=== PATIENT | female | born 1965 | race Caucasian/White ===

== ENCOUNTER 2022-10-15 18:53 | Emergency (ER) | payer OTHER, BC ==
[~2022-10-15] VITALS: Ht 152.4 cm; Wt 61.2 kg
[2022-10-15 19:01] VITALS: BP 128/81
--- NOTE | 2022-10-15 20:32 | NUR ---
Dr. Vale examining patient.
[2022-10-15] MEDS ORDERED: methocarbamoL 500 MG TAB PO STA (20:37)
[2022-10-15] MEDS ORDERED: ACETAMINOPHEN 325 MG TAB PO ONE (20:40)
--- NOTE | 2022-10-15 20:59 | NUR ---
Patient returned back from CT scan.
[2022-10-15] MEDS ORDERED: KETOROLAC 15 MG/ML VIAL IM ONE (22:20)
[2022-10-15] MEDS ORDERED: IBUP-2213 PO (22:31)
[2022-10-15] MEDS ORDERED: LID5T TP (22:31)
[2022-10-15] MEDS ORDERED: METH-1681 PO (22:31)
--- NOTE | 2022-10-15 22:39 | NUR ---
Patient discharged with v/s stable. Written and verbal after care instructions given and explained. Patient alert, oriented and verbalized understanding of instructions. Ambulatory with steady gait. All questions addressed prior to discharge. ID band removed. Patient advised to follow up with PMD. Rx of ROBAXIN, LIDODERM, AND MOTRIN given. Patient educated on indication of medication including possible reaction and side effects. Opportunity to ask questions provided and answered.
== END 2022-10-15 22:39 | disposition home or self-care (01) ==
LOC: MED 18:53
DX: S16.1XXA Strain of muscle, fascia and tendon at neck level, initial encounter (principal); S09.90XA Unspecified injury of head, initial encounter; Z79.899 Other long term (current) drug therapy; V49.88XA Car occupant (driver) (passenger) injured in other specified transport accidents, initial encounter; Y93.89 Activity, other specified; Y92.89 Other specified places as the place of occurrence of the external cause; Y99.8 Other external cause status
CPT/HCPCS: 70450; 71045; 72125; 96372; 99285; J1885; 99284